=== PATIENT | male | born 1935 | race Caucasian/White ===

== ENCOUNTER 2017-01-28 09:53 | Emergency (ER) | payer MEDICARE ==
[~2017-01-28] VITALS: Ht 167.6 cm; Wt 80.0 kg
[~2017-01-28 09:53] MED LIST: ADVAIR DISK1 INH; ALPRAZOLAM0.25 MG PO; ATENOLOL25 MG PO; ESCITALOPRAM OX10 MG PO; HYDROCHLOROT12.5 MG PO; IPRATROPIU0.5 MG/3 M IN; LEVAQUIN750 MG PO; LOSARTAN POT50 MG PO; MELATONIN3 MG PO; MULTIVITAMIN PO; OMEGA-3 FISH1000 MG PO; PREDNISONE10 MG PO; PREVACID15 M1 PO; TAMSULOSIN0.4 MG PO; TOLTERODINE TART4 MG PO; TYLENOL # 31 TA1 PO; VENTOLIN HF1 IN
[2017-01-28 10:29] LABS: HEMATOCRIT 37.3 % (39.0-50.0); HEMOGLOBIN 12.7 g/dl (14.0-18.0); IMMATURE GRANULOCYTES 2.5 % (0.0-1.0); MEAN CELL VOLUME 94.9 fL CALC (80.0-100.0); MEAN CORPUSCULAR HGB 32.3 pG CALC (26.0-32.0); NEUT# 6.34 thou/uL (1.82-7.42); RED BLOOD COUNT 3.93 mill/uL (4.70-6.10)
[2017-01-28 10:41] LABS: ALBUMIN 3.8 g/dL (3.2-5.0); ALKALINE PHOSPHATASE 74 u/l (38-126); ANION GAP 15 (6-22 (CALC)); BILIRUBIN, TOTAL 0.4 mg/dL (0.0-1.4); BUN 23 mg/dL (8-23); BUN/CREATININE RATIO 17 (12-20 (CALC)); CALCIUM 9.6 mg/dL (8.4-10.2); CARBON DIOXIDE 28 mmol/l (22-30); CHLORIDE 93 mmol/l (95-108); CREATININE 1.3 mg/dL (0.7-1.3); GFR 53 ML/MIN (>=60 (CALC)); GFR FOR AFR.AMER. > 60 ML/MIN (>=60 (CALC)); GLUCOSE 119 mg/dL (82-115); POTASSIUM 4.3 mmol/l (3.5-5.1); SGOT/AST 23 u/l (19-48); SGPT/ALT 27 u/l (11-66); SODIUM 132 mmol/l (137-146); TOTAL PROTEIN 6.8 g/dL (6.3-8.2)
[2017-01-28] MEDS ORDERED: HYDROCHLOROT12.5 M1 PO (10:49)
[2017-01-28 10:52] LABS: MYOGLOBIN 73 ng/mL (0 - 121)
[2017-01-28] MEDS ORDERED: LOSARTAN POT50 MG PO (10:55)
[2017-01-28] MEDS ORDERED: TESSALON PER100 MG PO (15:34)
[2017-01-28] MEDS ORDERED: LEVAQUIN750 MG PO (15:34)
[2017-01-28] MEDS ORDERED: MEDDOSEPAK PO (15:34)
[2017-01-28 15:40] VITALS: BP 162/69
== END 2017-01-28 15:48 | disposition home or self-care (01) ==
LOC: ED 09:53
PROVIDERS: Emergency Medicine
DX: J44.9 Chronic obstructive pulmonary disease, unspecified (principal); J90 Pleural effusion, not elsewhere classified; R06.02 Shortness of breath; R05 Cough; I10 Essential (primary) hypertension
CPT/HCPCS: Q9967

== ENCOUNTER 2017-12-07 09:40 | Emergency (ER) | payer MEDICARE ==
[~2017-12-07] VITALS: Ht 167.6 cm; Wt 80.0 kg
[~2017-12-07 09:40] MED LIST changes: +HYDROCHLOROT12.5 M1 PO; +MEDDOSEPAK PO; +TESSALON PER100 MG PO
[2017-12-07] MEDS ORDERED: SPIRONOLACTONE25 MG PO (10:51)
[2017-12-07] MEDS ORDERED: LASIX 40 MG TAB40 MG PO (10:52)
[2017-12-07 11:09] LABS: HEMATOCRIT 41.6 % (39.0-50.0); HEMOGLOBIN 13.6 g/dl (14.0-18.0); IMMATURE GRANULOCYTES 0.7 % (0.0-1.0); MEAN CORPUSCULAR HGB 32.4 pG CALC (26.0-32.0); MEAN CORPUSCULAR HGB CONC 32.7 g/L CALC (32.0-36.0); NEUT# 10.3 thou/uL (1.82-7.42); RED BLOOD COUNT 4.2 mill/uL (4.70-6.10); RED CELL DISTRI WIDTH 12.8 % (11.5-15.5)
[2017-12-07] MEDS ORDERED: SPIRIVA HANDIH18 MCG IN (11:10)
[2017-12-07] MEDS ORDERED: PROAIR HFA IN (11:10)
[2017-12-07 11:16] LABS: ALBUMIN 4.2 g/dL (3.2-5.0); BILIRUBIN, TOTAL 0.6 mg/dL (0.0-1.4); TOTAL PROTEIN 6.9 g/dL (6.3-8.2)
[2017-12-07 11:21] LABS: POTASSIUM 5.4 mmol/l (3.5-5.1)
[2017-12-07 13:06] VITALS: BP 161/69
== END 2017-12-07 13:06 | disposition home or self-care (01) ==
LOC: ED 09:40
PROVIDERS: Emergency Medicine
DX: J44.1 Chronic obstructive pulmonary disease with (acute) exacerbation (principal); J06.9 Acute upper respiratory infection, unspecified; R09.81 Nasal congestion; R05 Cough; R06.02 Shortness of breath; I10 Essential (primary) hypertension

== ENCOUNTER 2018-11-09 08:43 | Inpatient (IN) | payer MEDICARE ==
[~2018-11-09] VITALS: Ht 167.6 cm; Wt 80.0 kg
[~2018-11-09 08:43] MED LIST changes: +LASIX 40 MG TAB40 MG PO; +PROAIR HFA IN; +SPIRIVA HANDIH18 MCG IN; +SPIRONOLACTONE25 MG PO
--- NOTE | 2018-11-09 08:52 | NUR ---
PT TO ROOM PER W/C
--- NOTE | 2018-11-09 09:15 | NUR ---
PT RESTING QUIETLY ON STRETCHER, AT BEDSIDE
[2018-11-09 09:20] LABS: HEMATOCRIT 44.1 % (39.0-50.0); HEMOGLOBIN 14.6 g/dl (14.0-18.0); IMMATURE GRANULOCYTES 0.4 % (0.0-5.0); MEAN CELL VOLUME 94.2 fL CALC (80.0-100.0); MEAN CORPUSCULAR HGB 31.2 pG CALC (26.0-32.0); MEAN CORPUSCULAR HGB CONC 33.1 g/L CALC (32.0-36.0); NEUT# 8.57 thou/uL (1.82-7.42); RED BLOOD COUNT 4.68 mill/uL (4.70-6.10); RED CELL DISTRI WIDTH 13.7 % (11.5-15.5)
[2018-11-09 09:48] LABS: ANION GAP 14 (6-22 (CALC)); BUN 24 mg/dL (8-23); BUN/CREATININE RATIO 19 (12-20 (CALC)); CARBON DIOXIDE 27 mmol/l (22-30); CHLORIDE 100 mmol/l (95-108); CREATININE 1.3 mg/dL (0.7-1.3); GFR 53 ML/MIN (>=60 (CALC)); GFR FOR AFR.AMER. > 60 ML/MIN (>=60 (CALC)); SODIUM 136 mmol/l (137-146)
--- NOTE | 2018-11-09 10:24 | NUR ---
ANTIBIOTICS INFUSING, VITAL SIGNS REMAIN STABLE, SATS 92%, AT BEDSIDE, WARM BLANKET GIVEN
[2018-11-09] MEDS ORDERED: AMLODIPINE2.5 MG PO (11:19)
--- NOTE | 2018-11-09 11:25 | NUR ---
TRIED TO CALL REPORT , NURSE UNAVAILABLE AT THIS TIME
--- NOTE | 2018-11-09 12:12 | NUR ---
PT CAME FROM ER VIA STRETCHER BY TONJA. STAND BY ASSIST TO BED AND VS OBTAIN. SAFETY PRECAUTIONS REINFORCED AND CALL LIGHT IN REACH. IN ROOM.
[2018-11-09 12:15] VITALS: BP 139/63
--- NOTE | 2018-11-09 12:18 | NUR ---
PT TAKEN TO MED SURG PER CELSO, AT SIDE WITH TELEMENTRY
--- NOTE | 2018-11-09 13:32 | NUR ---
ASSESSMENT DONE . TELE IN PLACE. LUNGS SOUND RHONCHI.#20 LAC THAT APPPEARS HEALTHY. PT DENIES PAIN AT THIS TIME. PT DENIES NEEDS AT THIS TIME. CALL LIGHT IN REACH.
[2018-11-09 15:10] VITALS: BP 142/50
--- NOTE | 2018-11-09 15:59 | NUR ---
PT RESTING IN BED WITH O2 AT 2L/M VIA NC. TELE IN PLACE. PT VISITING WITH IN ROOM. PT DENIES NEEDS AT THIS TIME. CALL LIGHT IN REACH.
--- NOTE | 2018-11-09 19:15 | NUR ---
PT IS UPRIGHT IN BED WATCHING TV W/LIGHTS ON. NO S/S OF DISTRESS NOTED, PT REPORTS FEELING BETTER SINCE ARRIVING TO UNIT. WILL FOLLOW-UP W/ASSESSMENT AND MEDICATIONS ORDERS PROVIDE.
[2018-11-09 19:40] VITALS: BP 121/56
--- NOTE | 2018-11-09 22:22 | NUR ---
PT MEDICATED ORDERS PROVIDE AND POC DISCUSSED W/PT. 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 DENIES ANY OTHER NEEDS AT THIS TIME. CALL LIGHT IN HAND AND PT ENCOURAGED TO CALL.
[2018-11-10] VITALS (7 sets, daily range): BP systolic 119–143; BP diastolic 46–72
--- NOTE | 2018-11-10 05:23 | NUR ---
PT MEDICATED W/AM MEDICATION ORDERED. POC AND MEDICATIONS DISCUSSED W/PT. NO S/O DISTRESS NOTED AT THIS TIME. CALL LIGHT AT BEDSIDE, PT DENIES ANY OTHER NEEDS.
[2018-11-10 05:59] LABS: ALBUMIN 3.6 g/dL (3.2-5.0); ALKALINE PHOSPHATASE 81 u/l (38-126); AMYLASE 50 u/l (30-110); ANION GAP 16 (6-22 (CALC)); BILIRUBIN, TOTAL 0.3 mg/dL (0.0-1.4); BUN 31 mg/dL (8-23); BUN/CREATININE RATIO 25 (12-20 (CALC)); CARBON DIOXIDE 25 mmol/l (22-30); CHLORIDE 98 mmol/l (95-108); CREATININE 1.2 mg/dL (0.7-1.3); GFR 58 ML/MIN (>=60 (CALC)); GFR FOR AFR.AMER. > 60 ML/MIN (>=60 (CALC)); HEMATOCRIT 40.2 % (39.0-50.0); HEMOGLOBIN 13.6 g/dl (14.0-18.0); IMMATURE GRANULOCYTES 0.5 % (0.0-5.0); LIPASE 36 u/l (23-300); MEAN CELL VOLUME 93.1 fL CALC (80.0-100.0); MEAN CORPUSCULAR HGB 31.5 pG CALC (26.0-32.0); MEAN CORPUSCULAR HGB CONC 33.8 g/L CALC (32.0-36.0); NEUT# 14.1 thou/uL (1.82-7.42); POTASSIUM 4.9 mmol/l (3.5-5.1); RED BLOOD COUNT 4.32 mill/uL (4.70-6.10); RED CELL DISTRI WIDTH 13.8 % (11.5-15.5); SGOT/AST 24 u/l (19-48); SODIUM 134 mmol/l (137-146); TOTAL PROTEIN 6.4 g/dL (6.3-8.2)
--- NOTE | 2018-11-10 07:00 | NUR ---
SHIFT CHANGE REPORT, PT AWAKE ALERT AND ORIENTED, N C/O DISCOMFORT, BREATHING SHALLOW, TELE MONITOR IN PLACE, CALL EPPS IN REACH.
--- NOTE | 2018-11-10 12:42 | NUR ---
SITTING UP IN BED HAVING MEAL, DR RODRIGUEZ AND MARYANN VASQUEZ, PT UNABLE TO SUPPLY INFORMATION, WILL CONTINUE TO MONITOR.
--- NOTE | 2018-11-10 12:44 | NUR ---
SITTING UP IN BED, DR RODRIGUEZ AND MARYANN ROUNDED, PT REQUESTED HOME MEDS STATING HE DID NOT SLEEP WELL AND HOME MED MORE EFFECTIVE, CONCERN ADDRESSED, SPOUSE AT BEDSIDE, WILL CONTINUE TO MONITOR.
--- NOTE | 2018-11-10 19:35 | NUR ---
PT UP STANDING NEXT TO HIS BED STATED HE IS WAITING TO TAKE A SHOWER. I EXPLAINED TO HIM THAT THE AIDES ARE COLLECTING V/S AT THIS TIME AND AFTER I SEE MY PT'S OR THEY COMPLETE V/S WE WILL BE IN TO ASSIST. PT VOICED UNDERSTANDING. PT LEFT SITTING ON BED WATCHING [employer] W/CALL LIGHT IN HAND.
--- NOTE | 2018-11-10 22:05 | NUR ---
PT MEDICATED ORDERS PROVIDE AND W/HOME MED FOR SLEEP ORDERED. PT IS UP AND DOWN FROM BED TO RECLINER AND AROUND THE ROOM. PT ASSESSED, LUNG SOUNDS ARE WHEEZY THROUGHOUT, ABD SOFT NON-TENDER W/ACTIVE BOWEL SOUNDS, NO NOTED EDEMA, SKIN AND NEURO'S INTACT, LOCX4. DENIES ANY PAIN OR SOB AT THIS TIME. WILL CONTINUE TO MONITOR. IV SITE FLUSHED/PATENT/APPEARS HEALTHY. CALL LIGHT AT BEDSIDE AND PT ENCOURAGED TO CALL IF NEEDS ARISE.
--- NOTE | 2018-11-10 22:30 | NUR ---
WARM PRUNE JUICE PROVIDED/REQUEST.
--- NOTE | 2018-11-11 00:12 | NUR ---
PT UP TO RESTROOM REPORTS HE USED URINAL BUT FLUSHED IT HIMSELF REPORTING 200CC OF YELLOW URINE.
--- NOTE | 2018-11-11 01:30 | NUR ---
PT SLEEPING, NO S/O DISTRESS AT THIS TIME. CALL LIGHT AT BEDSIDE.
--- NOTE | 2018-11-11 04:41 | NUR ---
PT V/S ASSESSED, PT REPORTS THAT HE WENT TO RESTROOM AND FLUSHED URINE. PT EDUCATED ON I&O'S AND REMINDED THAT WE NEED A URINE SAMPLE FROM HIM.
[2018-11-11 04:59] VITALS: BP 141/67
--- NOTE | 2018-11-11 05:48 | NUR ---
PT MEDICATED ORDERS PROVIDE. RESPIRATORY IN W/PT FOR DUONEB TREATMENT. NO S/O DISTRESS AT THIS TIME. PT EDUCATED AGAIN ON USING URINAL.
[2018-11-11 05:56] LABS: HEMATOCRIT 39.5 % (39.0-50.0); HEMOGLOBIN 13.1 g/dl (14.0-18.0); IMMATURE GRANULOCYTES 0.7 % (0.0-5.0); MEAN CELL VOLUME 93.4 fL CALC (80.0-100.0); MEAN CORPUSCULAR HGB CONC 33.2 g/L CALC (32.0-36.0); NEUT# 17.58 thou/uL (1.82-7.42); RED BLOOD COUNT 4.23 mill/uL (4.70-6.10); RED CELL DISTRI WIDTH 14.1 % (11.5-15.5)
[2018-11-11 06:07] LABS: ALBUMIN 3.5 g/dL (3.2-5.0); BILIRUBIN, TOTAL 0.4 mg/dL (0.0-1.4); CREATININE 1.5 mg/dL (0.7-1.3); MAGNESIUM 2.2 mg/dL (1.6-2.3); TOTAL PROTEIN 6.4 g/dL (6.3-8.2)
[2018-11-11 06:08] LABS: POTASSIUM 5.4 mmol/l (3.5-5.1)
--- NOTE | 2018-11-11 07:00 | NUR ---
Received report from nurse Pollard, patioent sitting in bed, denies pain or discomfort, call light at reach
[2018-11-11 07:30] VITALS: BP 134/67
--- NOTE | 2018-11-11 08:00 | NUR ---
Patient sitting in bed, eating breakfast, noted to have occasional coughing, denies pain or discomfort at this time, call light at reach
[2018-11-11 09:18] LABS: URINE BILIRUBIN - DIPSTICK NEGATIVE (NEGATIVE); URINE BLOOD DIPSTICK NEGATIVE (NEGATIVE); URINE COLOR YELLOW; URINE GLUCOSE - DIPSTICK NEGATIVE (NEGATIVE); URINE KETONE NEGATIVE (NEGATIVE); URINE LEUK ESTERASE NEGATIVE (NEGATIVE); URINE NITRITE - DIPSTICK NEGATIVE (Negative); URINE PH 5.5 (4.5-8.0); URINE PROTEIN - DIPSTICK NEGATIVE (NEG-TRACE); URINE UROBILINOGEN - DIPSTICK 0.2 E.U./dL (0.2)
[2018-11-11 11:23] VITALS: BP 134/65
--- NOTE | 2018-11-11 11:50 | NUR ---
Seen on round by dr. Licona, new orders for discharge and give MIralax and Dulcolax r/t constipation. Call light within reach
[2018-11-11] MEDS ORDERED: MEDDOSEPAK PO (13:40)
[2018-11-11] MEDS ORDERED: DOXYCYC MONO100 M2 PO (13:40)
--- NOTE | 2018-11-11 15:25 | NUR ---
Discharge instructions given. Patient verbalizes understanding of same. Discharged in stable condition via Wheelchair to Home with family. All belongings sent with pt.
== END 2018-11-11 15:25 | disposition home or self-care (01) | DRG 190 ==
LOC: ED 08:43 → ED-I 10:19 → ED 10:32 → MS2 10:33
PROVIDERS: Family Medicine; Nurse Practitioner Family; ADMIT Internal Medicine Nephrology; ATTEND Internal Medicine Nephrology
DX: J44.1 Chronic obstructive pulmonary disease with (acute) exacerbation (principal); J18.9 Pneumonia, unspecified organism; J44.0 Chronic obstructive pulmonary disease with (acute) lower respiratory infection; I12.9 Hypertensive chronic kidney disease with stage 1 through stage 4 chronic kidney disease, or unspecified chronic kidney disease; N18.3 Chronic kidney disease, stage 3 (moderate); N40.0 Benign prostatic hyperplasia without lower urinary tract symptoms; F32.9 Major depressive disorder, single episode, unspecified; Z96.651 Presence of right artificial knee joint; Z87.891 Personal history of nicotine dependence; Z99.81 Dependence on supplemental oxygen
CPT/HCPCS: J1650